=== PATIENT | male | born 1975 | race Caucasian/White ===

== ENCOUNTER → 2020-06-04 | Outpatient (CLI) | payer SELFPAY ==
[2020-06-04 12:00] LABS: Basophils # (A) 0.1 k/uL (0-0.2); Basophils % (A) 1 %; Eosinophils # (A) 0.2 k/uL (0-0.7); Eosinophils % (A) 2 %; HCT 46.3 % (39.0-53.0); HGB 15.3 gm/dL (13.0-17.5); Lymphocytes # (A) 1.4 k/uL (1.0-4.8); Lymphocytes % (A) 16 %; MCH 29.1 pg (25.0-35.0); MCHC 33.1 g/dL (31.0-37.0); MCV 88.1 fL (80.0-100.0); Mean Platelet Volume 7.1; Monocytes # (A) 0.4 k/uL (0-1.0); Monocytes % (A) 5 %; Neutrophils # (A) 6.2 k/uL (1.3-7.7); Neutrophils % (A) 74 %; Platelet Count 250 k/uL (150-450); RBC 5.26 m/uL (4.30-5.90); RDW 12.4 % (11.5-15.5); WBC 8.3 k/uL (3.8-10.6)
[2020-06-04 20:15] LABS: African American GFR (CKD) 94.8 (60.0-200.0); Albumin 4.3 g/dL (3.80-4.90); Albumin/Globulin Ratio 2.15 (1.60-3.17); BUN/Creat Ratio 14.55 Ratio (12.00-20.00); Calcium 9.1 mg/dL (8.7-10.3); Chol/HDL Ratio 5.39; LDL Cholesterol,Calculated 162.8 mg/dL (0.0-131.0); Non-African American GFR(CKD) 81.8 (60.0-200.0); Potassium 4.6 mmol/L (3.5-5.5); Total Bilirubin 0.7 mg/dL (0.2-1.2); Total Protein 6.3 g/dL (6.2-8.2); VLDL Calculation 17.2 mg/dL (5.00-40.00)
[2020-06-04 20:20] LABS: Hemoglobin A1C 5.8 % (4.0-6.0)
== END | disposition home or self-care (01) ==
LOC: LABWHC1 10:29
PROVIDERS: ATTEND Family Medicine
DX: Z00.00 Encounter for general adult medical examination without abnormal findings (principal)
CPT/HCPCS: 36415; 80053; 80061; 83036; 84443; 85025

== ENCOUNTER → 2022-05-12 | Outpatient (CLI) | payer OTHER ==
[2022-05-12 15:08] LABS: Basophils # (A) 0.07 X 10*3/uL (0.00-0.10); Basophils % (A) 0.9 %; Eosinophils # (A) 0.21 X 10*3/uL (0.04-0.35); Eosinophils % (A) 2.8 %; HCT 46.2 % (39.6-50.0); HGB 14.8 g/dL (13.0-17.0); Immature Grans, Automated 0.4 %; Lymphocytes # (A) 1.73 X 10*3/uL (0.90-5.00); Lymphocytes % (A) 23.1 %; MCH 28.8 pg (27.0-32.0); MCV 90.1 fL (80.0-97.0); Mean Platelet Volume 10.9 fL (9.5-12.2); Monocytes # (A) 0.55 X 10*3/uL (0.20-1.00); Monocytes % (A) 7.3 %; NRBC Per 100 WBC 0 /100 WBCS (0.0-0.0); Neutrophils # (A) 4.91 X 10*3/uL (1.80-7.70); Neutrophils % (A) 65.5 %; Platelet Count 244 X 10*3/uL (140-440); RBC 5.13 X 10*6/uL (4.40-5.60); RDW 11.9 % (11.5-14.5)
== END | disposition home or self-care (01) ==
LOC: LABWHC1 09:25
PROVIDERS: ATTEND Surgery
DX: Z01.812 Encounter for preprocedural laboratory examination (principal); K40.91 Unilateral inguinal hernia, without obstruction or gangrene, recurrent
CPT/HCPCS: 36415; 85025

== ENCOUNTER 2022-05-23 07:07 | Day surgery (SDC) | payer OTHER ==
[2022-05-22 09:33] VITALS: BMI 29.8
[~2022-05-23 07:07] MED LIST: ACETAMINOPHEN TAB 500 MG TAB PO PRN; DEXAMETHASONE SOD PHOSPHATE 4 MG/ML 1 ML VIAL IV ONE; HEPARIN SODIUM,PORCINE/PF 5,000 UNIT/0.5 ML SYRINGE SQ PRN; HYDROmorphone 0.5 MG/0.5 ML SYRINGE IVP PRN; LACTATED RINGERS 1,000 ML IV SCH; LIDOCAINE 1% (10MG/ML) FOR IV START INTRADERMA PRN
[2022-05-23] MEDS ORDERED: ONDANSETRON 4 MG/2 ML VIAL ONE (08:49)
--- NOTE | 2022-05-23 09:00 | P.GSHP ---
History of Present Illness H&P Date: 05/23/22 Chief Complaint: Recurrent left Inguinal hernia This a 46-year-old male presents today for laparoscopic robotic-assisted repair of recurrent left inguinal hernia. Past Medical History Past Medical History: No Reported History Additional Past Medical History / Comment(s): HERNIA History of Any Multi-Drug Resistant Organisms: None Reported Additional Past Surgical History / Comment(s): BILAT eye surgery-RK Past Anesthesia/Blood Transfusion Reactions: No Reported Reaction Smoking Status: Never smoker - Past Family History Mother Family Medical History: No Reported History Medications and Allergies Home Medications Medication Instructions Recorded Confirmed Type No Known Home Medications 04/24/22 05/23/22 History Allergies Allergy/AdvReac Type Severity Reaction Status Date / Time No Known Allergies Allergy Verified 05/23/22 08:14 Surgical - Exam Vital Signs Temp Pulse Resp BP Pulse Ox 97.2 F L 58 L 18 134/83 96 05/23/22 08:21 05/23/22 08:21 05/23/22 08:21 05/23/22 08:21 05/23/22 08:21 - General well developed, well nourished, no distress - Eyes PERRL - ENT normal pinna - Neck no masses - Respiratory normal expansion - Cardiovascular Rhythm: regular - Abdomen Abdomen: soft, non tender Hernia: inguinal (Recurrent left) Assessment and Plan Plan: Recurrent left inguinal hernia. We'll perform laparoscopic robotic-assisted repair.
[2022-05-23] MEDS ORDERED: MIDAZOLAM 2 MG/2 ML VIAL IVP ONE (09:07)
[2022-05-23] MEDS ORDERED: BUPIVACAIN-EPI 0.25%-1:200,000 30 ML VIAL SQ ONE ×2 (09:20→09:45)
[2022-05-23] MEDS ORDERED: ROPIVACAINE 5 MG/ML 30 ML VIAL ONE (09:24)
[2022-05-23] MEDS ORDERED: PROPOFOL 10 MG/ML 20 ML VIAL IV ONE (09:24)
[2022-05-23] MEDS ORDERED: KETOROLAC 15 MG/ML 1 ML VIAL ONE (09:24)
[2022-05-23] MEDS ORDERED: HYDROmorphone (PF) 1 MG/ML ONE (09:24)
[2022-05-23] MEDS ORDERED: SUCCINYLCHOLINE CHLORIDE 200 MG/10 ML VIAL IV ONE (09:24)
[2022-05-23] MEDS ORDERED: KETAMINE 10 MG/ML 20 ML VIAL ONE (09:24)
[2022-05-23] MEDS ORDERED: GLYCOPYRROLATE 0.2 MG/ML 2 ML VIAL ONE (09:24)
[2022-05-23] MEDS ORDERED: MIDAZOLAM 2 MG/2 ML VIAL ONE (09:24)
[2022-05-23] MEDS ORDERED: fentaNYL (PF) 50 MCG/ML 2 ML AMP ONE (09:24)
[2022-05-23] MEDS ORDERED: ROCURONIUM 10 MG/ML (5 ML VIAL) IV ONE (09:24)
[2022-05-23] MEDS ORDERED: NEOSTIGMINE 1 MG/ML 10 ML VIAL ONE (09:24)
[2022-05-23] MEDS ORDERED: SODIUM CHLORIDE 0.9% (PF) 10 ML VIAL ONE (09:24)
--- NOTE | 2022-05-23 10:48 | P.OP ---
Date of Procedure: 05/23/22 Preoperative Diagnosis: Recurrent left inguinal hernia Postoperative Diagnosis: Recurrent left inguinal hernia Procedure(s) Performed: Laparoscopic robotic system repair of recurrent left internal hernia Excision of cord lipoma Transversus abdominis plane block Anesthesia: DARCEI Surgeon: Dank Chairez Estimated Blood Loss (ml): 5 Pathology: other (Cord lipoma) Condition: stable Disposition: PACU Description of Procedure: The patient's placed on the operating table in the supine position. The patient received general anesthesia. The patient's abdomen was prepped and draped in usual sterile fashion. The skin was anesthetized 1% local Xylocaine at the incision sites. Using an 11 blade a skin incision was made at the umbilicus. The fascia was grasped with a Zoey and then the peritoneal cavity was entered with the Veress needle. Position of the Veress needle was confirmed with a positive drop test. After adequate insufflation a 5 mm trocar was placed into the peritoneal cavity. The Laparoscope was placed the peritoneal cavity. And a robotic 8 mm trocar was placed in the right lateral position and then another 8 mm robotic trochars placed in the left lateral position. The original 5 mm trocar was exchanged for a 12 mm trocar. A four-quadrant transversus abdominis plane block was performed with 1% local Xylocaine. The patient was placed in reverse Trendelenburg and then the patient was docked to the robot. Next the peritoneum over top of the hernia was incised and then using blunt and sharp dissection and electrocautery the hernia sac was dissected free from the floor of the inguinal canal. The cord lipoma was dissected free and sent to pathology. The hernia sac was completely reduced into the peritoneal cavity. And then using the Pro scalloper mesh the hernia was repaired. The peritoneum was then sutured with 20V lock suture. The patient was then undocked the robot. The needle was withdrawn from the peritoneal cavity. The umbilical trocar site was closed with 0 Ethibond suture. The skin was closed interrupted 3-0 Monocryl suture. Dermabond dressing was applied. Patient was sent to recovery in stable condition.
[2022-05-23 11:05] VITALS: TEMP 97
[2022-05-23] MEDS ORDERED: MEPERIDINE 50 MG/ML SYRINGE IVP ONE (11:13)
[2022-05-23] MEDS ORDERED: LACTATED RINGERS 1,000 ML IV ONE (11:14)
--- NOTE | 2022-05-23 13:18 | P.ANPRN ---
Procedure Note - Anesthesia - Nerve Block Performed Bilateral Erector Spinae Time Out Performed: Yes (:) Date of Procedure: 05/23/22 Procedure Start Time: Procedure Stop Time: Location of Patient: PreOp Indication: Acute Post-Operative Pain, Requested by Surgeon (Dr Chairez) Sedation Type: Sedate with meaningful contact maintained Preparation: Sterile Prep Position: Prone Catheter: None Needle Types: Pajunk Needle Gauge: 21 Ultrasound used to visualize needle placement: Yes Ultrasound used to observe medication spread: Yes Injectate: 0.5% Ropivacaine (see comment for volume) (15cc +10cc PF Normal saline each side) Blood Aspirated: No Pain Paresthesia on Injection Noted: No Resistance on Injection: Normal Image Stored and Saved: Yes Events: Uneventful and Well Tolerated
[2022-05-23 14:23] VITALS: BP 114/60; PULSE 92; RESP 16
== END 2022-05-23 14:50 | disposition home or self-care (01) ==
LOC: OR 07:07
PROVIDERS: ATTEND Surgery
DX: K40.91 Unilateral inguinal hernia, without obstruction or gangrene, recurrent (principal); G89.18 Other acute postprocedural pain; Z98.890 Other specified postprocedural states; Z84.89 Family history of other specified conditions
CPT/HCPCS: 49651; 64489; 64999; 86900; 86901; 88304; 86850; C1781; J2250; J0330; J1100; J2710; J2175; J0690; J2405; J3010; J1170; J2795; J1885; J2704; J1644

== ENCOUNTER 2024-12-01 10:29 | Emergency (ER) | payer OTHER ==
[2024-12-01] MEDS: SODIUM CHLORIDE 0.9% 1,000 ML IV ONE (10:35)
[2024-12-01 10:37] VITALS: BP 137/103; PULSE 85; RESP 20; TEMP 95
[2024-12-01] MEDS: TRANEXAMIC 1,000 MG/100ML-NACL 1,000 MG in SALINE 1 100ML.BAG IV STA (10:44)
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
[2024-12-01 10:56] LABS: Basophils # (A) 0.1 k/uL (0-0.2); Basophils % (A) 1 %; Eosinophils # (A) 0.1 k/uL (0-0.7); Eosinophils % (A) 2 %; HCT 42.7 % (39.0-53.0); HGB 13.5 gm/dL (13.0-17.5); Lymphocytes # (A) 2.3 k/uL (1.0-4.8); Lymphocytes % (A) 27 %; MCHC 31.6 g/dL (31.0-37.0); MCV 91.8 fL (80.0-100.0); Mean Platelet Volume 8.9; Monocytes # (A) 0.5 k/uL (0-1.0); Monocytes % (A) 6 %; Neutrophils # (A) 5.2 k/uL (1.3-7.7); Neutrophils % (A) 63 %; Platelet Count 263 k/uL (150-450); RBC 4.65 m/uL (4.30-5.90); RDW 12.7 % (11.5-15.5); WBC 8.4 k/uL (3.8-10.6)
[2024-12-01 11:07] LABS: Prothrombin Time 10.9 sec (10.0-12.5)
[2024-12-01 11:12] LABS: Partial Thromboplastin Time 20.3 sec (22.0-30.0)
[2024-12-01] MEDS: NOREPINEPHRINE 4 MG in SODIUM CHLORIDE 0.9% 250 ML IV SCH (11:12)
[2024-12-01 11:19] LABS: ALT 22 U/L (4-49); AST 31 U/L (17-59); African American GFR (CKD) 63 (>60 ml/min/1.73 sqM); Albumin 3.7 g/dL (3.5-5.0); Alcohol <10 mg/dL; Alkaline Phosphatase 94 U/L (38-126); Anion Gap 14 mmol/L; Blood Urea Nitrogen 11 mg/dL (9-20); Calcium 8.5 mg/dL (8.4-10.2); Carbon Dioxide 20 mmol/L (22-30); Chloride 106 mmol/L (98-107); Glucose 254 mg/dL (74-99); Non-African American GFR(CKD) 55 (>60 ml/min/1.73 sqM); Potassium 3.8 mmol/L (3.5-5.1); Sodium 140 mmol/L (137-145); Total Bilirubin 0.6 mg/dL (0.2-1.3); Total Protein 6.1 g/dL (6.3-8.2)
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
[2024-12-01] MEDS: fentaNYL (PF) 50 MCG/ML 2 ML AMP IVP ONE (11:39)
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
--- NOTE | 2024-12-01 13:50 | P.GSHP ---
History of Present Illness H&P Date: 12/01/24 Chief Complaint: Crush industrial accident This a 49-year-old male who was pinned between a forklift and another forklift. Patient was brought into the hospital as a alliance party 1 activation. The patient was hypotensive at the scene. Patient unable to move his lower extremities. The patient is alert and orientated. Past Medical History Past Medical History: No Reported History Additional Past Medical History / Comment(s): HERNIA History of Any Multi-Drug Resistant Organisms: None Reported Additional Past Surgical History / Comment(s): BILAT eye surgery-[facility] Past Anesthesia/Blood Transfusion Reactions: No Reported Reaction Past Psychological History: No Psychological Hx Reported Smoking Status: Never smoker - Past Family History Mother Family Medical History: No Reported History Medications and Allergies Home Medications Medication Instructions Recorded Confirmed Type Acetaminophen Tab [Tylenol] 650 mg PO Q6H #30 tab 05/23/22 Rx Docusate [Colace] 100 mg PO BID #20 capsule 05/23/22 Rx Ibuprofen [Motrin] 600 mg PO Q6HR PRN #40 tab 05/23/22 Rx oxyCODONE HCL [OxyIR] 5 mg PO Q6H PRN 3 Days #10 tab 05/23/22 Rx Allergies Allergy/AdvReac Type Severity Reaction Status Date / Time No Known Allergies Allergy Verified 12/01/24 10:38 Surgical - Exam Vital Signs Temp Pulse Resp BP Pulse Ox 95.0 F L 85 20 137/103 99 12/01/24 10:32 12/01/24 10:32 12/01/24 10:32 12/01/24 10:32 12/01/24 10:32 - General well developed, moderate distress - Eyes PERRL - ENT normal pinna - Neck no masses - Respiratory normal expansion - Cardiovascular Rhythm: regular - Abdomen Abdomen: soft, non tender - Integumentary Abrasion over pubic area and across the patient's gluteal area - Neurologic Patient moves upper extremities. He is unable to move lower extremities - Musculoskeletal Patient's lower extremities are mottled. Pulses are unable to be palpated. However there is capillary refill. Results - Labs 12/01/24 10:40 12/01/24 10:40 Abnormal Lab Results - Last 24 Hours (Table) 12/01/24 12/01/24 12/01/24 Range/Units 10:40 10:40 10:40 APTT 20.3 L (22.0-30.0) sec Carbon Dioxide 20 L (22-30) mmol/L Creatinine 1.50 H (0.66-1.25) mg/dL Glucose 254 H (74-99) mg/dL Plasma Lactic Acid Liban (0.7-2.0) mmol/L Total Protein 6.1 L (6.3-8.2) g/dL Crossmatch See Detail 12/01/24 Range/Units 10:40 APTT (22.0-30.0) sec Carbon Dioxide (22-30) mmol/L Creatinine (0.66-1.25) mg/dL Glucose (74-99) mg/dL Plasma Lactic Acid Liban 7.6 H* (0.7-2.0) mmol/L Total Protein (6.3-8.2) g/dL Crossmatch Diabetes panel 12/01/24 Range/Units 10:40 Sodium 140 (137-145) mmol/L Potassium 3.8 (3.5-5.1) mmol/L Chloride 106 (98-107) mmol/L Carbon Dioxide 20 L (22-30) mmol/L BUN 11 (9-20) mg/dL Creatinine 1.50 H (0.66-1.25) mg/dL Glucose 254 H (74-99) mg/dL Calcium 8.5 (8.4-10.2) mg/dL AST 31 (17-59) U/L ALT 22 (4-49) U/L Alkaline Phosphatase 94 (38-126) U/L Total Protein 6.1 L (6.3-8.2) g/dL Albumin 3.7 (3.5-5.0) g/dL Calcium panel 12/01/24 Range/Units 10:40 Calcium 8.5 (8.4-10.2) mg/dL Albumin 3.7 (3.5-5.0) g/dL Pituitary panel 12/01/24 Range/Units 10:40 Sodium 140 (137-145) mmol/L Potassium 3.8 (3.5-5.1) mmol/L Chloride 106 (98-107) mmol/L Carbon Dioxide 20 L (22-30) mmol/L BUN 11 (9-20) mg/dL Creatinine 1.50 H (0.66-1.25) mg/dL Glucose 254 H (74-99) mg/dL Calcium 8.5 (8.4-10.2) mg/dL Adrenal panel 12/01/24 Range/Units 10:40 Sodium 140 (137-145) mmol/L Potassium 3.8 (3.5-5.1) mmol/L Chloride 106 (98-107) mmol/L Carbon Dioxide 20 L (22-30) mmol/L BUN 11 (9-20) mg/dL Creatinine 1.50 H (0.66-1.25) mg/dL Glucose 254 H (74-99) mg/dL Calcium 8.5 (8.4-10.2) mg/dL Total Bilirubin 0.6 (0.2-1.3) mg/dL AST 31 (17-59) U/L ALT 22 (4-49) U/L Alkaline Phosphatase 94 (38-126) U/L Total Protein 6.1 L (6.3-8.2) g/dL Albumin 3.7 (3.5-5.0) g/dL - Imaging CT scan - abdomen: report reviewed (CT scan reviewed) Assessment and Plan Assessment: Level 1 trauma activation. Patient has a crush injury of his pelvis area. The patient received massive blood transfusion protocol due to his hypotension. I did a FAST exam prior to the patient's CAT scan I was unable to see any hemoperitoneum. The patient will be optimized and transferred to [facility].
== END 2024-12-01 11:38 | disposition other institution (70) ==
LOC: EC 10:29
DX: S38.1XXA Crushing injury of abdomen, lower back, and pelvis, initial encounter (principal); S30.1XXA Contusion of abdominal wall, initial encounter; S30.0XXA Contusion of lower back and pelvis, initial encounter; G83.10 Monoplegia of lower limb affecting unspecified side; W23.0XXA Caught, crushed, jammed, or pinched between moving objects, initial encounter
CPT/HCPCS: 99291 ×2; 96365 ×2; 96367 ×2; 96375 ×2; 36430 ×2; 36415; 86900; 86901; 80053; 83605; 84484; 85025; 85610; 85730; 86850; 86920; 80320; 72170; 71045; 72125; 70450; 71275; 74174; G0390; P9016; P9059; P9073; J3010; Q9967